=== PATIENT | male | born 1955 | race African-American/Black ===

== ENCOUNTER 2017-11-24 07:31 | Emergency (ER) | payer OTHER ==
[2017-11-24] MEDS ORDERED: CYCLOBENZAPRINE HCL 10 MG TABLET PO ONE (08:41)
[2017-11-24] MEDS ORDERED: OXYCODONE-ACETAMINOPHEN 5-325 MG TABLET PO ONE ×2 (08:41→10:15)
[2017-11-24] MEDS ORDERED: HYDROMORPHONE HCL INJ/PF 2 MG/ML AMPULE IM ONE (08:50)
--- NOTE | 2017-11-24 09:23 | RADIOLOGY REPORT (SQ) ---
EXAM DESCRIPTION: CT CERVICAL SPINE WITHOUT COMPLETED DATE/TIME: 11/24/2017 9:10 am REASON FOR STUDY: neck pain radiating right arm w/numbness hand COMPARISON: None. TECHNIQUE: Axial images acquired through the cervical spine without intravenous contrast. Images re viewed with lung, soft tissue and bone windows. Reconstructed coronal and sagittal MPR images review ed. Images stored on PACS. All CT scanners at this facility use dose modulation, iterative reconstruction, and/or weight based d osing when appropriate to reduce radiation dose to as low as reasonably achievable (ALARA). [facility]: Dose Right [facility]: CareDose [facility]: Dose Right [facility]: Teradose 4D [facility]: NetDevices RADIATION DOSE: 20.3 mGy. LIMITATIONS: None. FINDINGS: ALIGNMENT: Anatomic. MINERALIZATION: Normal. VERTEBRAL BODIES: No fractures or dislocation. DISCS: Craniocervical junction, C1-2, C2-3 are unremarkable. The C7-T1 level is unremarkable. At C3-4, moderate right and high-grade left foraminal narrowing is present from facet and uncovertebr al hypertrophy. No central stenosis. At C4-5, high-grade bilateral foraminal narrowing from facet hypertrophy is present left greater than right. No central stenosis. At C5-6, high-grade right, moderate left foraminal narrowing is present from facet and uncovertebral hypertrophy. No central stenosis. At C6-7, moderate bilateral foraminal narrowing from facet hypertrophy. No central stenosis. FACETS, LATERAL MASSES, POSTERIOR ELEMENTS: No fractures. No dislocation. No acute findings. HARDWARE: None in the spine. VISUALIZED RIBS: No fractures. LUNG APICES AND SOFT TISSUES: No significant or acute findings. OTHER: No other significant finding. IMPRESSION: No acute fracture or malalignment. Multilevel foraminal narrowing TECHNICAL DOCUMENTATION: JOB ID: [id number] Quality ID # [id number]: Final reports with documentation of one or more dose reduction techniques (e.g., Au tomated exposure control, adjustment of the mA and/or kV according to patient size, use of iterative reconstruction technique) 2010 [employer]- All Rights Reserved Reading location - IP/workstation name: [email or web address]
--- NOTE | 2017-11-24 09:40 | RADIOLOGY REPORT (SQ) ---
EXAM DESCRIPTION: SHOULDER RIGHT 2 OR MORE VIEWS COMPLETED DATE/TIME: 11/24/2017 9:14 am REASON FOR STUDY: neck pain radiating right arm w/numbness hand COMPARISON: None. NUMBER OF VIEWS: Three views. TECHNIQUE: Internal rotation, external rotation, and Y view images acquired of the right shoulder. LIMITATIONS: None. FINDINGS: MINERALIZATION: Normal. BONES: No acute fracture or dislocation. No worrisome bone lesions. JOINTS: No glenohumeral joint malalignment. Mild acromioclavicular joint bony spurring without AC eulalio int widening VISUALIZED LUNGS AND RIBS: No pneumothorax. No rib fracture. SOFT TISSUES: No radiopaque foreign body. OTHER: No other significant finding. IMPRESSION: Mild bony spurring at the AC joint. No right glenohumeral joint malalignment. No fracture. TECHNICAL DOCUMENTATION: JOB ID: [id number] [email or web address]- All Rights Reserved Reading location - IP/workstation name: [email or web address]
--- NOTE | 2017-11-24 10:10 | ER Document Report ---
ED Extremity Problem, Upper - General Chief Complaint: Shoulder Pain Stated Complaint: SHOULDER ARM PAIN Time Seen by Provider: 11/24/17 08:28 Mode of Arrival: Ambulatory Information source: Patient Notes: Patient is a 62-year-old male who presents to the ER today for right arm pain from the upper back/neck down the right arm all the way to the fingertips, he describes it as a very sharp pain with some numbness and tingling to the tips of his fingers. Patient denies any injury, history of any neck issues or shoulder issues. He does admit to chronic back issues but it has always been lower than the neck. Patient has never had surgery on his back or neck. TRAVEL OUTSIDE OF THE [place] IN LAST 30 DAYS: No - Related Data Allergies/Adverse Reactions: No Known Allergies Allergy (Verified 11/24/17 07:31) Past Medical History - General Information source: Patient - Social History Smoking Status: Former Smoker Chew tobacco use (# tins/day): No Frequency of alcohol use: None Drug Abuse: None Family History: Reviewed & Not Pertinent Patient has suicidal ideation: No Patient has homicidal ideation: No Renal/ Medical History: Denies: Hx Peritoneal Dialysis Review of Systems - Review of Systems Constitutional: No symptoms reported EENT: No symptoms reported Cardiovascular: No symptoms reported Respiratory: No symptoms reported Gastrointestinal: No symptoms reported Genitourinary: No symptoms reported Male Genitourinary: No symptoms reported Musculoskeletal: See HPI Skin: No symptoms reported Hematologic/Lymphatic: No symptoms reported Neurological/Psychological: No symptoms reported Physical Exam - Vital signs Vitals: Temp Pulse Resp BP Pulse Ox 97.8 F 67 16 166/84 H 98 11/24/17 07:36 11/24/17 07:36 11/24/17 07:36 11/24/17 07:36 11/24/17 07:36 - Notes Notes: PHYSICAL EXAMINATION: GENERAL: Obviously in pain, holding right arm, pacing around, in mild acute distress. HEAD: Atraumatic, normocephalic. EYES: Pupils equal round and reactive to light, extraocular movements intact, sclera anicteric, conjunctiva are normal. NECK: See back below, normal range of motion, supple without lymphadenopathy LUNGS: CTAB and equal. No wheezes rales or rhonchi. HEART: Regular rate and rhythm without murmurs ABDOMEN: Soft, no tenderness. No guarding, no rebound BACK: Cervical vertebral tenderness, normal ROM but with pain radiating down the right arm with rotation of the neck GI/: no CVA tenderness EXTREMITIES: Limited range of motion with extension, flexion, abduction past 90 secondary to pain, tender to right shoulder and right upper arm, no specific bony tenderness, no pitting edema. No cyanosis. NEUROLOGICAL: Cranial nerves grossly intact. Normal sensory/motor exams. PSYCH: Normal mood, normal affect. SKIN: Warm, Dry, normal turgor, no rashes or lesions noted Course - Re-evaluation Re-evalutation: 11/24/17 10:06 CT of the cervical spine reports cervical foramen narrowing at multiple levels, no signs of stenosis however, C3-C6 with narrowing. Will give information for neurosurgery in [facility], will treat with steroids today, muscle relaxers and anti- inflammatories. 11/24/17 10:10 - Vital Signs Vital signs: Temp Pulse Resp BP Pulse Ox 97.8 F 67 16 166/84 H 98 11/24/17 07:36 11/24/17 07:36 11/24/17 07:36 11/24/17 07:36 11/24/17 07:36 Discharge - Discharge Clinical Impression: Cervical nerve root impingement Condition: Stable Disposition: HOME, SELF-CARE Additional Instructions: Return immediately for any new or worsening symptoms. Follow up with primary care provider/neurosurgeon, call tomorrow to make followup appointment. Prescriptions: Cyclobenzaprine HCl [Flexeril 10 mg Tablet] 10 mg PO TIDP PRN #30 tab PRN Reason: Hydrocodone/Acetaminophen [[place] 5-325 mg Tablet] 2 tab PO Q4 PRN #20 tab PRN Reason: Ibuprofen [Motrin 800 mg Tablet] 800 mg PO Q8H PRN #30 tab PRN Reason: Referrals: MEENU SCANLON MD [Primary Care Provider] - Follow up as needed ARLENE JUNIOR MD [COMMUNITY BASED STAFF] - Follow up as needed
[2017-11-24] MEDS ORDERED: METHYLPREDNISOLONE INJ 125 MG/2 ML SDV IM ONE (10:15)
[2017-11-24 10:44] VITALS: BP 151/91
== END 2017-11-24 10:44 | disposition home or self-care (01) ==
LOC: ER 07:31
DX: M75.41 Impingement syndrome of right shoulder (principal); M79.601 Pain in right arm; Z87.891 Personal history of nicotine dependence
CPT/HCPCS: 99284; 96372; 73030; 72125; J2930; J1170